=== PATIENT | female | born 1995 | race Caucasian/White ===

== ENCOUNTER 2023-10-18 20:59 | Emergency (ER) | payer BC, SELFPAY ==
[2023-10-18 21:02] VITALS: BP 129/76; PULSE 90; RESP 16; TEMP 36.5; O2SAT 99; BMI 26.6
--- NOTE | 2023-10-18 21:11 | ECG_ITS ---
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
--- NOTE | 2023-10-18 21:14 | ED_ITS ---
Documented by User: Monica Davidsonon 10/18/23 21:58 HPI - General Adult General Chief complaint: Head Injury Stated complaint: FALL Time Seen by Provider: 10/18/23 21:11 History of Present Illness HPI narrative: 28 year old female presents to the ED for dizziness, syncopal episode. Reports she was walking at a store today when she became dizzy, lightheaded. Family member states the patient then slowly lowered to the floor. Reports her syncopal episode lasted <1 minute. States she felt her head hit the floor. Denies N/V. Denies pain to her neck, back, chest, abdomen. Reports a headache. States she is 4 months ; she is . Denies urinary sx. Denies vaginal bleeding or discharge. States this has never happened before. Rates her pain 02/27. Related Data Home Medications Medication Instructions Recorded Confirmed ondansetron 4 mg disintegrating 4 mg PO Q8H 10/18/23 10/18/23 tablet Allergies Allergy/AdvReac Type Severity Reaction Status Date / Time Penicillins Allergy Unknown Verified 10/18/23 21:06 Review of Systems ROS Constitutional Denies: fever or chills Ears, nose, mouth, and throat Denies: throat pain or neck pain Cardiovascular Denies: chest pain or palpitations Respiratory Denies: shortness of breath or cough Gastrointestinal Denies: abdominal pain, nausea, vomiting or diarrhea Genitourinary Denies: painful urination, urinary frequency, urinary urgency, pelvic pain, vaginal bleeding or vaginal discharge Musculoskeletal Denies: back pain or neck pain Integumentary/Breast Denies: rash Neurological Reports: headache and dizziness; Denies: numbness in extremities, weakness in extremities, lack of coordination or confusion PFSH PFSH Social History Smoking status: Never smoker Exam Constitutional Vital Signs, click to edit/add: Last Vital Signs Temp 97.7 F 10/18/23 21:02 Pulse 92 H 10/18/23 23:18 Resp 16 10/18/23 21:02 BP 109/70 10/18/23 23:18 Pulse Ox 99 10/18/23 21:02 O2 Del Method Room Air 10/18/23 21:02 Common normals: no apparent distress and oriented x3 General appearance: cooperative; not in distress and not ill appearing [facility] Common normals: normocephalic Head and scalp: normal to inspection Face and sinus: normal facial exam Nose: external nose normal Mouth: oral and palatal mucosa normal, lip normal and tongue normal Eye Common normals: PERRL, EOMs intact bilaterally, conjunctivae normal and no scleral icterus Neck & C-Spine Common normals: supple Cervical spine: cervical ROM normal; no pain with cervical ROM, no cervical spine tenderness, no paracervical muscle tenderness and no paracervical muscle spasm Chest Chest: symmetrical chest wall rise Respiratory Common normals: normal respiratory effort Effort & inspection: able to speak in complete sentences and symmetric chest movement Auscultation: clear to auscultation bilaterally Cardio Common normals: regular rate and regular rhythm GI Common normals: Normal to inspection, nondistended, normoactive bowel sounds present, soft to palpation and non-tender Back & Pelvis Thoracic spine/upper back: normal to inspection; no thoracic spinal tenderness, no paraspinal muscle tenderness and no paraspinal muscle spasm Lumbar spine/lower back: normal to inspection; no lumbar spinal tenderness, no paraspinal muscle tenderness and no paraspinal muscle spasm Neuro Common normals: oriented x3, CN's II-XII intact bilaterally, moves all extremities, no focal motor deficits and no sensory deficits noted Sensorium/orientation: awake and alert Speech: speech normal Gait (neuro): normal gait Sensory exam: extremities Course Vital Signs Vital signs: Vital Signs Temperature 97.7 F 10/18/23 21:02 Pulse Rate 90 10/18/23 21:02 Respiratory Rate 16 10/18/23 21:02 Blood Pressure 129/76 10/18/23 21:02 Pulse Oximetry 99 10/18/23 21:02 Oxygen Delivery Method Room Air 10/18/23 21:02 Temperature 97.7 F 10/18/23 21:02 Pulse Rate 92 H 10/18/23 23:18 Respiratory Rate 16 10/18/23 21:02 Blood Pressure 109/70 10/18/23 23:18 Pulse Oximetry 99 10/18/23 21:02 Oxygen Delivery Method Room Air 10/18/23 21:02 Medical Decision Making MDM Narrative Medical decision making narrative: heart tones were obtained and were 143. Testing was pending. Care was resumed to Dr. Mackenzie. See his dictation for further evaluation and treatment. Medical Records Medical records reviewed: Yes I reviewed the patient's medical records Lab Data Lab results reviewed: Yes I reviewed the patient's lab results Labs: Lab Results 10/18/23 10/18/23 Range/Units 21:30 21:43 WBC 7.5 (4.0-11.0) 10^3/uL RBC 3.96 L (4.20-5.40) 10^6/uL Hgb 11.7 L (12.0-16.0) g/dL Hct 34.4 L (36.0-48.0) % MCV 86.9 (81.0-99.0) fL MCH 29.5 (26.7-34.0) pg MCHC 34.0 (29.9-35.2) g/dL RDW 14.7 (11.0-15.0) % Plt Count 309 (150-450) 10^3/uL MPV 10.1 (9.5-13.5) fL Neut % (Auto) 67.8 (43.0-75.0) % Lymph % (Auto) 24.1 (20.5-60.0) % [place] % (Auto) 7.2 (1.7-12.0) % Eos % (Auto) 0.3 L (0.9-7.0) % Baso % (Auto) 0.3 (0.2-2.0) % Neut # (Auto) 5.1 (1.4-6.5) 10^3/uL Lymph # (Auto) 1.8 (1.2-3.8) 10^3/uL [place] # (Auto) 0.5 (0.3-0.8) 10^3/uL Eos # (Auto) 0.0 (0.0-0.7) 10^3/uL Baso # (Auto) 0.0 (0.0-0.1) 10^3/uL Abs Immat Gran (auto) 0.02 (0.00-0.03) 10^3/uL Imm/Tot Granulo (auto) 0.3 (0.0-0.5) % Sodium 136 (136-145) mmol/L Potassium 3.2 L (3.5-5.1) mmol/L Chloride 102 (98-107) mmol/L Carbon Dioxide 21.5 (21.0-32.0) mmol/L Anion Gap 15.7 BUN 5.0 L (7.0-18.0) mg/dL Creatinine 0.57 (0.55-1.02) mg/dL Est GFR ( Amer) >60 (>=60) Est GFR (Non-Af Amer) >60 (>=60) BUN/Creatinine Ratio 8.8 Glucose 100 (74-106) mg/dL Calcium 8.7 (8.5-10.1) mg/dL Total Bilirubin 0.2 (0.2-1.0) mg/dL AST 12 L (15-37) U/L ALT 7 L (14-59) U/L Alkaline Phosphatase 72 (46-116) U/L Total Protein 7.3 (6.4-8.2) g/dL Albumin 3.0 L (3.4-5.0) g/dL Globulin 4.3 g/dL Albumin/Globulin Ratio 0.7 Urine Color Lt. yellow (YELLOW) Urine Clarity Clear (CLEAR) Urine pH 7.0 (5.0-9.0) Ur Specific [place] 1.010 (1.005-1.025) Urine Protein Negative (NEG/TRACE) mg/dL Urine Glucose (UA) 250 A (NEGATIVE) mg/dL Urine Ketones Negative (NEGATIVE) mg/dL Urine Occult Blood Negative (NEGATIVE) Urine Nitrite Negative (NEGATIVE) Urine Bilirubin Negative (NEGATIVE) Urine Urobilinogen 0.2 (0.2-1.0) EU/dL Ur Leukocyte Esterase Negative (NEGATIVE) ECG Data Attestation: ?I have reviewed the pertinent ECG results. (EKG was reviewed by the attending physician. It showed sinus rhythm at a rate of 84. No acute ST segment changes.) Interpretation: Measurements Intervals [place] Rate: 84 P: 69 [place]: 132 QRS: 83 QRSD: 78 T: 62 QT: 386 QTc: 426 Interpretive Statements 1100 Sinus rhythm 9110 normal ECG No previous ECG available for comparison Discharge Plan Discharge Chief Complaint: Head Injury Clinical Impression: Head injury, Fainting spell Patient Disposition: Home, Self-Care Prescriptions / Home Meds: No Action ondansetron 4 mg tablet,disintegrating 4 mg PO Q8H Instructions: Syncope (ED), Head Injury (ED) Additional Instructions: drink plenty of fluids and follow up with your doctor tomorrow for recheck. Return if fainting recurs Stand Alone Forms: Portal Instructions Referrals: Physician,Non-Staff, [Primary Care Provider] - 1 week Discharge Date/Time: 10/18/23 23:52 Documented by User: Luis Enrique Mackenzie MD 10/20/23 06:48 HPI - General Adult General Chief complaint: Head Injury Stated complaint: FALL Time Seen by Provider: 10/18/23 21:11 Related Data Home Medications Medication Instructions Recorded Confirmed ondansetron 4 mg disintegrating 4 mg PO Q8H 10/18/23 10/18/23 tablet Allergies Allergy/AdvReac Type Severity Reaction Status Date / Time Penicillins Allergy Unknown Verified 10/18/23 21:06 PFSH PFSH Social History Smoking status: Never smoker Exam Constitutional Vital Signs, click to edit/add: Last Vital Signs Temp 97.7 F 10/18/23 21:02 Pulse 92 H 10/18/23 23:18 Resp 16 10/18/23 21:02 BP 109/70 10/18/23 23:18 Pulse Ox 99 10/18/23 21:02 O2 Del Method Room Air 10/18/23 21:02 Course Vital Signs Vital signs: Vital Signs Temperature 97.7 F 10/18/23 21:02 Pulse Rate 90 10/18/23 21:02 Respiratory Rate 16 10/18/23 21:02 Blood Pressure 129/76 10/18/23 21:02 Pulse Oximetry 99 10/18/23 21:02 Oxygen Delivery Method Room Air 10/18/23 21:02 Temperature 97.7 F 10/18/23 21:02 Pulse Rate 92 H 10/18/23 23:18 Respiratory Rate 16 10/18/23 21:02 Blood Pressure 109/70 10/18/23 23:18 Pulse Oximetry 99 10/18/23 21:02 Oxygen Delivery Method Room Air 10/18/23 21:02 Medical Decision Making MDM Narrative Medical decision making narrative: heart tones were obtained and were 143. Testing was pending. Care was resumed to Dr. Mackenzie. See his dictation for further evaluation and treatment. patient presented after fainting spell. Was leaving the store. Became sweating and light headed and per her friends description was trying to hold on to something when she fell. She was unresponsive for a few seconds and then woke up. Feels well now. No chest pain. orthostatics are normal. No problem with this her 2nd . she is not tachycardic. Discharged home and close follow up recommended Lab Data Labs: Lab Results 10/18/23 10/18/23 Range/Units 21:30 21:43 WBC 7.5 (4.0-11.0) 10^3/uL RBC 3.96 L (4.20-5.40) 10^6/uL Hgb 11.7 L (12.0-16.0) g/dL Hct 34.4 L (36.0-48.0) % MCV 86.9 (81.0-99.0) fL MCH 29.5 (26.7-34.0) pg MCHC 34.0 (29.9-35.2) g/dL RDW 14.7 (11.0-15.0) % Plt Count 309 (150-450) 10^3/uL MPV 10.1 (9.5-13.5) fL Neut % (Auto) 67.8 (43.0-75.0) % Lymph % (Auto) 24.1 (20.5-60.0) % [place] % (Auto) 7.2 (1.7-12.0) % Eos % (Auto) 0.3 L (0.9-7.0) % Baso % (Auto) 0.3 (0.2-2.0) % Neut # (Auto) 5.1 (1.4-6.5) 10^3/uL Lymph # (Auto) 1.8 (1.2-3.8) 10^3/uL [place] # (Auto) 0.5 (0.3-0.8) 10^3/uL Eos # (Auto) 0.0 (0.0-0.7) 10^3/uL Baso # (Auto) 0.0 (0.0-0.1) 10^3/uL Abs Immat Gran (auto) 0.02 (0.00-0.03) 10^3/uL Imm/Tot Granulo (auto) 0.3 (0.0-0.5) % Sodium 136 (136-145) mmol/L Potassium 3.2 L (3.5-5.1) mmol/L Chloride 102 (98-107) mmol/L Carbon Dioxide 21.5 (21.0-32.0) mmol/L Anion Gap 15.7 BUN 5.0 L (7.0-18.0) mg/dL Creatinine 0.57 (0.55-1.02) mg/dL Est GFR ( Amer) >60 (>=60) Est GFR (Non-Af Amer) >60 (>=60) BUN/Creatinine Ratio 8.8 Glucose 100 (74-106) mg/dL Calcium 8.7 (8.5-10.1) mg/dL Total Bilirubin 0.2 (0.2-1.0) mg/dL AST 12 L (15-37) U/L ALT 7 L (14-59) U/L Alkaline Phosphatase 72 (46-116) U/L Total Protein 7.3 (6.4-8.2) g/dL Albumin 3.0 L (3.4-5.0) g/dL Globulin 4.3 g/dL Albumin/Globulin Ratio 0.7 Urine Color Lt. yellow (YELLOW) Urine Clarity Clear (CLEAR) Urine pH 7.0 (5.0-9.0) Ur Specific [place] 1.010 (1.005-1.025) Urine Protein Negative (NEG/TRACE) mg/dL Urine Glucose (UA) 250 A (NEGATIVE) mg/dL Urine Ketones Negative (NEGATIVE) mg/dL Urine Occult Blood Negative (NEGATIVE) Urine Nitrite Negative (NEGATIVE) Urine Bilirubin Negative (NEGATIVE) Urine Urobilinogen 0.2 (0.2-1.0) EU/dL Ur Leukocyte Esterase Negative (NEGATIVE) Discharge Plan Discharge Chief Complaint: Head Injury Clinical Impression: Head injury, Fainting spell Patient Disposition: Home, Self-Care Prescriptions / Home Meds: No Action ondansetron 4 mg tablet,disintegrating 4 mg PO Q8H Instructions: Syncope (ED), Head Injury (ED) Additional Instructions: drink plenty of fluids and follow up with your doctor tomorrow for recheck. Return if fainting recurs Stand Alone Forms: Portal Instructions Referrals: Physician,Non-Staff, [Primary Care Provider] - 1 week Discharge Date/Time: 10/18/23 23:52
[2023-10-18 21:37] LABS: Basophils Percent Auto 0.3 % (0.2-2.0); Eosinophils Percent Auto 0.3 % (0.9-7.0); Hematocrit 34.4 % (36.0-48.0); Hemoglobin 11.7 g/dL (12.0-16.0); Immature Granulocytes Abs Auto 0.02 10^3/uL (0.00-0.03); Immature Granulocytes Pct Auto 0.3 % (0.0-0.5); Lymphocytes Absolute Auto 1.8 10^3/uL (1.2-3.8); Lymphocytes Percent Auto 24.1 % (20.5-60.0); Mean Corpuscular Hemoglobin 29.5 pg (26.7-34.0); Mean Corpuscular Volume 86.9 fL (81.0-99.0); Mean Platelet Volume 10.1 fL (9.5-13.5); Monocytes Absolute Auto 0.5 10^3/uL (0.3-0.8); Monocytes Percent Auto 7.2 % (1.7-12.0); Neutrophils Absolute Auto 5.1 10^3/uL (1.4-6.5); Neutrophils Percent Auto 67.8 % (43.0-75.0); Platelet Count 309 10^3/uL (150-450); Red Blood Count 3.96 10^6/uL (4.20-5.40); Red Cell Distribution Width 14.7 % (11.0-15.0); White Blood Count 7.5 10^3/uL (4.0-11.0)
[2023-10-18 21:51] LABS: Alanine Aminotransferase 7 U/L (14-59); Albumin Globulin Ratio 0.7; Alkaline Phosphatase 72 U/L (46-116); Anion Gap 15.7; Aspartate Amino Transferase 12 U/L (15-37); BUN Creatinine Ratio 8.8; Bilirubin Total 0.2 mg/dL (0.2-1.0); Calcium 8.7 mg/dL (8.5-10.1); Carbon Dioxide 21.5 mmol/L (21.0-32.0); Chloride 102 mmol/L (98-107); Estimated GFR (African America >60 (>=60); Estimated GFR (Non-African Ame >60 (>=60); Globulin 4.3 g/dL; Glucose 100 mg/dL (74-106); Potassium 3.2 mmol/L (3.5-5.1); Sodium 136 mmol/L (136-145); Total Protein 7.3 g/dL (6.4-8.2)
[2023-10-18] MEDS: 0.9 % SODIUM CHLORIDE 1,000 ML 999 ML IV (21:51)
[2023-10-18 21:53] LABS: Bilirubin Urine NEGATIVE (NEGATIVE); Blood Urine NEGATIVE (NEGATIVE); Clarity Urine CLEAR (CLEAR); Color Urine LT. YELLOW (YELLOW); Glucose Urine UA 250 mg/dL (NEGATIVE); Ketones Urine NEGATIVE (NEGATIVE); Leukocyte Esterase Urine NEGATIVE (NEGATIVE); Nitrite Urine NEGATIVE (NEGATIVE); Protein Urine NEGATIVE (NEG/TRACE); Urine Microscopic Indicated NO; Urobilinogen Urine 0.2 EU/dL (0.2-1.0)
[2023-10-18 23:18] VITALS: BP 102/79; BP 109/70; BP 116/71; PULSE 92; PULSE 93; PULSE 95
== END 2023-10-18 23:52 | disposition home or self-care (01) ==
PROVIDERS: Nurse Practitioner Family; Emergency Provider Internal Medicine
DX: O9A.212 Injury, poisoning and certain other consequences of external causes complicating pregnancy, second trimester (principal); S09.90XA Unspecified injury of head, initial encounter; R55 Syncope and collapse; Z3A.00 Weeks of gestation of pregnancy not specified; W19.XXXA Unspecified fall, initial encounter
CPT/HCPCS: 36415; 80053; 81003; 85025; 93005; 96360; 99285